=== PATIENT | male | born 1990 | race Caucasian/White ===

== ENCOUNTER 2016-10-29 08:17 | Emergency (ER) | payer BC, OTHER ==
[~2016-10-29] VITALS: Ht 170.2 cm; Wt 90.7 kg
[~2016-10-29 08:17] MED LIST: CYCL10TA9 PO; IBUP800T26 PO; NAPR500T PO; TRAM50TA2 PO
--- OUTSIDE RECORDS SUMMARY | 2016-10-29 08:24 | XMS REPORT | Continuity of Care Document ---
Author Author [facility] Organization [facility] Address Unknown Phone Unavailable Care Team Providers Care Design Printer Balloon Name Role Phone BOB VAZQUEZ DO PCP Insurance Providers Payer Name Policy Number Subscriber Name Relationship [facility] [id number] Claus Lopez 18 Mother Self Pay Approved Full Alexa [id number] Lan Lopez 17 Self / Same As Patient Advance Directives Directive Response Recorded Date/Time Advance Directives No 12/29/14 10:40pm Organ Donor No 12/29/14 10:40pm Resuscitation Status Full Code 12/29/14 10:40pm Problems Medical Problems Problem Onset Date Status Sprain of ankle Unknown Active Back strain Unknown Active Medications Medication Dose Route Sig Days/Qty Instructions Order Date Discontinued Date Status Tramadol Hcl 50 Mg PO EVERY 4HRS PRN PAIN 10 Qty 11/04/13 12/29/14 Discontinued Ibuprofen (Motrin) 800 Mg PO q8h PRN PAIN 20 Qty 11/04/13 12/29/14 Discontinued Cyclobenzaprine HCl (Flexeril) 1 Each PO TWICE A DAY 10 Qty 12/29/14 Active Social History Social History Problem Response Recorded Date/Time Alcohol Use Denies Use 12/29/2014 10:40pm Recreational Drug Use No 12/29/2014 10:40pm Recent Foreign Travel No 12/29/2014 10:40pm Recent Infectious Disease Exposure No 12/29/2014 10:40pm Hospitalization with Isolation Denies 12/29/2014 10:40pm Sexually Transmitted Disease No 12/29/2014 10:40pm Smoking Status Never a Smoker 12/29/2014 10:40pm Do you dip or chew tobacco? No 12/29/2014 10:40pm Query Response Start Date Stop Date Smoking Status Never a Smoker Hospital Discharge Instructions No hospital discharge instructions. Plan of Care No plan of care. Functional Status No functional status results. Allergies, Adverse Reactions, Alerts Allergen Type Severity Reaction Status Last Updated No Known Drug Allergies Active 08/25/09 Immunizations Name Given Type Date of Influenza Vaccine 08/24/14 Historical Tetanus Booster (TDap) Less than 5yrs Historical Vital Signs Acute Vital Signs Vital Response Date/Time Temperature (Fahrenheit) 98.2 degrees F (97.6 - 99.5) Temperature (Calculated Celsius) 36.23735 degrees C (36.4 - 37.5) Temperature Source Temporal Pulse Rate (adult) 80 bpm (60 - 90) Respiratory Rate 16 bpm (12 - 24) O2 Sat by Pulse Oximetry 96 % (88 - 100) Blood Pressure 175/106 mm Hg Pain Pain Intensity 8 Height (Feet) 5 feet Height (Inches) 6 inches Height (Calculated Centimeters) 167.235380 cm Weight (Pounds) 235 pounds Weight (Calculated Kilograms) 106.934084 kilograms Calculated BMI 37.93 Results No known relevant diagnostic tests, laboratory data and/or discharge summary. Procedures No known history of procedures. Encounters Encounter Location Date/Time Departed Emergency Room [facility] 12/29/14 9:51pm Recent Diagnosis
--- NOTE | 2016-10-29 08:40 | ED Upper Extremity ---
General Chief Complaint: Upper Extremity Stated Complaint: RIGHT ARM PAIN Nursing Triage Note: c/o right elbow pain x 3 months. Pt works at [employer] and reports repetative work motion. Nursing Sepsis Screen: No Definite Risk Source: patient Exam Limitations: no limitations History of Present Illness Time seen by provider: 08:36 Initial Comments This 26-year-old white male presents with complaint of persistent right elbow pain for the last 3 months. Patient denies any discrete injury of a recent or remote nature. The pain as sharp in nature, moderate in severity, and made worse with motion. Both pronation-supination as well as flexion-extension causes pain. The patient believes there may be some slight soft tissue swelling to the proximal forearm. The patient denies fever or chill, definite erythema to the elbow, or other joint pain. Patient works at [employer] and states that lifting heavy objects makes the pain worse. Allergies and Home Medications Allergies Coded Allergies: No Known Drug Allergies (Unverified , 08/25/09) Constitutional: No chills, No fever Respiratory: No cough Cardiovascular: No chest pain Gastrointestinal: No abdominal pain, No dysphagia, No nausea, No vomiting Genitourinary: No dysuria, No frequency Musculoskeletal: see HPINo back pain, joint pain Skin: No change in color, No rash Psychiatric/Neurological: No Symptoms Reported Past Qzfzgbh-Yakhnp-Tisgmh Hx Patient Social History Alcohol Use: Denies Use Recreational Drug Use: No Smoking Status: Current Someday Smoker Recent Foreign Travel: No Contact w/Someone Who Travel: No Recent Infectious Disease Expo: No Recent Hopitalizations: No Physical Abuse Screen: No Sexual Abuse: No Immunizations Up To Date Tetanus Booster (TDap): Less than 5yrs Date of Influenza Vaccine: Aug 24, 2014 Seasonal Allergies Seasonal Allergies: No Surgeries HX Surgeries: No Respiratory Hx Respiratory Disorders: No Cardiovascular Hx Cardiac Disorders: No Neurological Hx Neurological Disorders: No Reproductive System Hx Reproductive Disorders: No Sexually Transmitted Disease: No Genitourinary Hx Genitourinary Disorders: No Gastrointestinal Hx Gastrointestinal Disorders: No Musculoskeletal Hx Musculoskeletal Disorders: Yes (previous lower back fx.) Endocrine Hx Endocrine Disorders: No HEENT HX ENT Disorders: No Cancer Hx Cancer: No Psychosocial Hx Psychiatric Problems: No Integumentary HX Skin/Integumentary Disorder: No Blood Transfusions Hx Blood Disorders: No Reviewed Nursing Assessment Reviewed/Agree w Nursing PMH: Yes Family Medical History Significant Family History: No Pertinent Family Hx Physical Exam Vital Signs Vital Sign - Last 12Hours 10/29/16 08:25 Temp 98.4 Pulse 70 Resp 16 Pulse Ox 98 Capillary Refill : Less Than 3 Seconds General Appearance: WD/WN no apparent distress HEENT: normal ENT inspection Neck: normal inspection Cardiovascular: regular rate, rhythm Respiratory: lungs clear Gastrointestinal: non tender soft Back: normal inspection Shoulder: normal inspection Elbow/Forearm: normal inspection, non-tender, no evidence of injury, normal ROM , Right (there is apparent pain with flexion and extension and pronation supination of the right elbow.) Wrist: Yes normal inspection Neurologic/Tendon: normal sensation normal motor functions normal tendon functions Neurologic/Psychiatric: no motor/sensory deficits alert Progress/Results/Core Measures Results/Orders Lab Results Laboratory Tests Test 10/29/16 09:08 Range/Units Basophils # (Auto) 0.0 0.0-0.1 10^3/uL Basophils (%) (Auto) 0 0-10 % Eosinophils # (Auto) 0.1 0.0-0.3 10^3/uL Eosinophils (%) (Auto) 1 0-10 % Erythrocyte Sedimentation Rate 1 0-15 MM/HR Hematocrit 49 40-54 % Hemoglobin 16.9 13.3-17.7 G/DL Lymphocytes # (Auto) 1.8 1.0-4.0 X 10^3 Lymphocytes (%) (Auto) 26 12-44 % Mean Corpuscular Hemoglobin 31 25-34 PG Mean Corpuscular Hemoglobin Concent 34 32-36 G/DL Mean Corpuscular Volume 91 80-99 FL Mean Platelet Volume 10.4 7.4-10.4 FL Monocytes # (Auto) 0.8 0.0-1.0 X 10^3 Monocytes (%) (Auto) 11 0-12 % Neutrophils # (Auto) 4.4 1.8-7.8 X 10^3 Neutrophils (%) (Auto) 62 42-75 % Platelet Count 239 130-400 10^3/uL Red Blood Count 5.40 4.35-5.85 10^6/uL Red Cell Distribution Width 13.4 10.0-14.5 % Uric Acid 6.6 2.6-7.2 MG/DL White Blood Count 7.0 4.3-11.0 10^3/uL My Orders Orders-SONY WOOTEN MD Elbow, Right, 3 Views (10/29/16 08:34) Erythrocyte Sedimentation Rate (10/29/16 08:34) Uric Acid (10/29/16 08:34) Cbc With Automated Diff (10/29/16 08:34) Vital Signs/I&O Vital Sign - Last 12Hours 10/29/16 08:25 Temp 98.4 Pulse 70 Resp 16 B/P Pulse Ox 98 Progress Note : Time: 10:00 Progress Note The x-ray of the right elbow was unremarkable. The sedimentation rate was normal at 1. Status CBC was unremarkable. The uric acid was normal. Departure Impression Impression: Primary Impression: Pain in right elbow Disposition: 01 HOME, SELF-CARE Condition: Unchanged Departure-Patient Inst. Decision time for Depature: 10:02 Referrals: BOB VAZQUEZ DO (PCP/Family) Primary Care Physician Patient Instructions: Joint Pain Add. Discharge Instructions: Follow-up with your primary care physician or work comp. Sling for comfort. Ibuprofen for pain. Return if any problems. All discharge instructions reviewed with patient and/or family. Voiced understanding. SONY WOOTEN MD Oct 29, 2016 08:40
--- NOTE | 2016-10-29 09:27 | Diagnostic Imaging Report ---
3 views of the right elbow. INDICATION: Pain. FINDINGS: There is no fracture, dislocation or radiopaque foreign body. No evidence of an elbow effusion. IMPRESSION: Unremarkable exam. Dictated by: Dictated on workstation # [id number]
[2016-10-29 09:31] LABS: BASOPHILS % (AUTO) 0 % (0-10); EOSINOPHILS # (AUTO) 0.1 10^3/uL (0.0-0.3); EOSINOPHILS % (AUTO) 1 % (0-10); LYMPHOCYTES # (AUTO) 1.8 X 10^3 (1.0-4.0); LYMPHOCYTES % (AUTO) 26 % (12-44); MEAN CORPUSCULAR HEMOGLOBIN 31 PG (25-34); MEAN CORPUSCULAR HGB CONC 34 G/DL (32-36); MEAN CORPUSCULAR VOLUME 91 FL (80-99); MEAN PLATELET VOLUME 10.4 FL (7.4-10.4); MONOCYTES # (AUTO) 0.8 X 10^3 (0.0-1.0); MONOCYTES % (AUTO) 11 % (0-12); NEUTROPHILS # (AUTO) 4.4 X 10^3 (1.8-7.8); NEUTROPHILS % (AUTO) 62 % (42-75); PLATELET COUNT 239 10^3/uL (130-400); RED CELL DISTRIBUTION WIDTH 13.4 % (10.0-14.5)
[2016-10-29 09:50] LABS: ERYTHROCYTE SEDIMENTATION RATE 1 MM/HR (0-15)
[2016-10-29 10:10] VITALS: BP 172/90
== END 2016-10-29 10:10 | disposition home or self-care (01) ==
LOC: EDUNIT# 08:17 → ER 08:20
DX: M79.631 Pain in right forearm (principal); F17.210 Nicotine dependence, cigarettes, uncomplicated
CPT/HCPCS: 36415; 73080; 84550; 85025; 85652

== ENCOUNTER 2017-07-10 03:41 | Emergency (ER) | payer BC, OTHER ==
[~2017-07-10] VITALS: Ht 167.6 cm; Wt 108.9 kg
[2017-07-10] MEDS ORDERED: TETANUS,DIPTH,PERTUSS P/F (BOOSTRIX) 0.5 ML VIAL IM ONE (04:15)
[2017-07-10] MEDS ORDERED: LIDOCAINE 1% INJ 20 ML (XYLOCAINE) VIAL INJ ONE (04:15)
--- NOTE | 2017-07-10 04:18 | ED Integumentary General ---
General Chief Complaint: Skin/Wound Problems Stated Complaint: SPIDER BITE Source: patient Exam Limitations: no limitations History of Present Illness Time seen by provider: 04:10 Initial Comments 26-year-old male presents to ER by private conveyance with a chief complaint of left shoulder pain from a insect bite or abscess over his left shoulder that he just noticed this evening when coming home from work. No limitation of range of motion, no nausea fever or malaise. No history of hidradenitis separative a. Has not ever had abscesses before. He has put some kind of an insect balm on it to no relief. He does not have diabetes however he does smoke one or 2 cigarettes a day. Denies alcohol or recreational drug use. He has no other significant medical history and does not take any medicines. Allergies and Home Medications Allergies Coded Allergies: No Known Drug Allergies (Unverified , 08/25/09) Constitutional: chills, No diaphoresis, No fever, No malaise Respiratory: No cough, No short of breath Cardiovascular: No chest pain, No palpitations Gastrointestinal: No abdominal pain, No constipation, No nausea Genitourinary: No discharge, No dysuria Musculoskeletal: No back pain, No joint pain Skin: see HPI, No pruritus, No rash Psychiatric/Neurological: Denies Headache, Denies Numbness, Denies Paresthesia Past Hlfcugs-Yqodqz-Uyfwnp Hx Patient Social History Recent Foreign Travel: No Contact w/Someone Who Travel: No Recent Hopitalizations: No Immunizations Up To Date Tetanus Booster (TDap): Less than 5yrs Date of Influenza Vaccine: Aug 24, 2014 Seasonal Allergies Seasonal Allergies: No Reproductive System Hx Reproductive Disorders: No Sexually Transmitted Disease: No Family Medical History Significant Family History: No Pertinent Family Hx Physical Exam Vital Signs Capillary Refill : General Appearance: WD/WN, no apparent distress HEENT: PERRL/EOMI, pharynx normal Neck: non-tender, normal inspection Cardiovascular: normal peripheral pulses, regular rate, rhythm Respiratory: no respiratory distress, no accessory muscle use Back: normal inspection, no vertebral tenderness Extremities: normal inspection, normal capillary refill Neurologic/Psychiatric: alert, oriented x 3 Skin: other (1.5 x 1 cm erythematous with white head papule on the left shoulder blade that is mildly tender to palpation and mild area of induration approximately 27 m diameter.) I&D : Site: left posterior shoulder above the scapula Blade Size: 11 I & D Procedure: betadine prep (alcohol) Progress Wound was soaked in alcohol pads and scrubbed thoroughly then saturated with Betadine swabs 3. He was then infiltrated with 1 cc of lidocaine and a ring fashion around the pore. 11 blade scalpel was then used to make a cross evangelista incision and a scant amount of purulence was expressed easily. The wound was then dressed with gauze and tape. Patient tolerated the procedure well. Progress/Results/Core Measures Results/Orders My Orders Orders - NENA MUHAMMAD Lidocaine 1% Injection (Xylocaine 1% Inj (07/10/17 04:15) Dipht,Pertuss(Acell),Tet Adult (Boostrix (07/10/17 04:15) Departure Impression Impression: Primary Impression: Abscess Disposition: 01 HOME, SELF-CARE Condition: Stable Departure-Patient Inst. Decision time for Depature: 04:27 Referrals: BOB VAZQUEZ DO (PCP/Family) Primary Care Physician Patient Instructions: Abscess Incision and Drainage (DC) Add. Discharge Instructions: Drink plenty of fluids and take Tylenol 1000 mg every 8 hours or ibuprofen 800 mg every 8 hours as needed to control the pain. You will get about 45 minutes to an hour's worth of numbness out of the medicine that we put in your shoulder. After which time he may have some dull ache. You've been given a tetanus shot and will be Covered for the next 5-10 years. You've also been given antibiotics and sent to the pharmacy to be picked up and taken with food twice a day for the next 5 days to prevent recurrence of infection. If you have new or worsening symptoms he may return to your primary care physician for follow-up evaluation. You may also use a warm compress applied directly over the wound to help open up the blood vessels in bring more healing blood in to the area so that the wound heals sooner. It is okay to shower and clean the wound with regular soap and water only. All discharge instructions reviewed with patient and/or family. Voiced understanding. Scripts Sulfamethoxazole/Trimethoprim (Bactrim Ds Tablet) 1 Each Tablet 1 EACH PO BID for 5 Days, #10 TAB 0 Refills Prov: NENA MUHAMMAD 07/10/17 Copy Copies To 1: BOB VAZQUEZ TITUS J Jul 10, 2017 04:18
[2017-07-10] MEDS ORDERED: SULF1TAB35 PO (04:29)
[2017-07-10 04:32] VITALS: BP 172/101
== END 2017-07-10 04:30 | disposition home or self-care (01) ==
LOC: EDUNIT# 03:41 → ER 03:45
DX: L02.414 Cutaneous abscess of left upper limb (principal)
CPT/HCPCS: 90471; 90715

== ENCOUNTER 2018-05-26 02:59 | Emergency (ER) | payer OTHER ==
[~2018-05-26] VITALS: Ht 170.2 cm; Wt 96.2 kg
[~2018-05-26 02:59] MED LIST changes: +NAPR-1071 PO; -NAPR500T PO; +SULF1TAB35 PO
[2018-05-26] MEDS ORDERED: CIPR-225 PO (03:14)
[2018-05-26] MEDS ORDERED: CYCLOBENZAPRINE 10 MG (FLEXERIL) TAB PO STA (03:15)
[2018-05-26] MEDS ORDERED: HYDROcodone/APAP 7.5 MG/325 MG (LORTAB, LORCET PLUS) TABLET PO STA (03:15)
[2018-05-26] MEDS ORDERED: predniSONE 20 MG TAB PO ONE (03:15)
--- NOTE | 2018-05-26 03:21 | ED Back Pain ---
General Chief Complaint: Back Problems Stated Complaint: BACK PAIN, LEG PAIN ON BOTH LEGS Source of Information: Patient Exam Limitations: No Limitations History of Present Illness Date Seen by Provider: May 26, 2018 Time Seen by Provider: 03:08 Initial Comments Here with report of low back pain and pain radiating to both legs. Denies any specific injury but states it may be from lifting trash out of a barrel at work. Does have history of back pain. Tried some ibuprofen and that has not helped. Is using topical medicine as well he states that is not helping much either. Timing/Duration: 3-4 Days Severity: Moderate Pain/Injury Location: Back Radiation: Buttocks, Upper Legs Method of Injury: Unknown Modifying Factors: Improves With Immobilization; Worse With Movement Associated Symptoms: muscle spasms; No weakness, No numbness in legs/feet, No tingling in legs/feet, No sensory/motor loss; lower back pain; No loss of bladder control, No loss of bowel control Allergies and Home Medications Allergies Coded Allergies: No Known Drug Allergies (Unverified , 08/25/09) Home Medications Ciprofloxacin HCl 500 Mg Tablet, 500 MG PO BID, (Reported) Patient Home Medication List Home Medication List Reviewed: Yes Constitutional: see HPI; No chills, No fever Respiratory: no symptoms reported Cardiovascular: no symptoms reported Gastrointestinal: No abdominal pain, No nausea, No vomiting Genitourinary: no symptoms reported Musculoskeletal: see HPI, back pain, muscle stiffness; No muscle weakness, No neck pain Skin: no symptoms reported Psychiatric/Neurological: No Symptoms Reported Past Cegmdew-Bhmdjv-Biagfb Hx Past Med/Social Hx: Reviewed Nursing Past Med/Soc Hx Patient Social History Alcohol Use: Denies Use Recreational Drug Use: No Type Used: Cigarettes 2nd Hand Smoke Exposure: Yes Recent Foreign Travel: No Contact w/Someone Who Travel: No Recent Hopitalizations: No Immunizations Up To Date Tetanus Booster (TDap): Less than 5yrs PED Vaccines UTD: Yes Date of Influenza Vaccine: Aug 24, 2014 Seasonal Allergies Seasonal Allergies: No Past Medical History Surgeries: No Respiratory: No Cardiac: No Neurological: No Reproductive Disorders: No Sexually Transmitted Disease: No Genitourinary: No Gastrointestinal: No Musculoskeletal: Yes (previous lower back fx.) Chronic Back Pain Endocrine: No HEENT: No Cancer: No Psychosocial: No Integumentary: No Blood Disorders: No Family Medical History Reviewed Nursing Family Hx No Pertinent Family Hx Physical Exam Vital Signs Vital Signs - First Documented 05/26/18 03:05 Temp 98.4 Pulse 76 Resp 20 B/P (MAP) 146/98 (114) Pulse Ox 98 O2 Delivery Room Air Capillary Refill : Height, Weight, BMI Height: 5'6.00" Weight: 240lbs. oz. 108.758286fe; 37.93 BMI Method:Stated General Appearance: WD/WN, Mild Distress Cardiovascular: Regular Rate, Rhythm, No Murmur Respiratory: Lungs Clear, Normal Breath Sounds Gastrointestinal: Non Tender, Soft Back: No CVA Tenderness (L), No CVA Tenderness (R); Decreased Range of Motion, Muscle Spasm; No Vertebral Tenderness Extremity: Normal Range of Motion, Non Tender; No No Pedal Edema Neurologic/Psychiatric: Alert, Oriented x3 Skin: Normal Color, Warm/Dry Progress/Results/Core Measures Results/Orders My Orders Orders - CUCO LOPEZ MD Cyclobenzaprine Tablet (Flexeril Tablet) (05/26/18 03:15) Hydrocodone/Apap 7.5/325 Tab (Lortab 7. (05/26/18 03:15) Prednisone Tablet (Deltasone Tablet) (05/26/18 03:15) Vital Signs/I&O 05/26/18 03:05 Temp 98.4 Pulse 76 Resp 20 B/P (MAP) 146/98 (114) Pulse Ox 98 O2 Delivery Room Air Progress Progress Note : Progress Note Seen and evaluated. We will give hydrocodone 7.5/325 one tab by mouth, cyclobenzaprine 10 mg by mouth and prednisone 40 mg by mouth. Discharged home with return precautions. Patient verbalize understanding instructions and agreement with plan. Departure Impression Primary Impression: Back pain Qualified Codes: M54.42 - Lumbago with sciatica, left side; M54.41 - Lumbago with sciatica, right side Disposition: 01 HOME, SELF-CARE Condition: Stable Departure-Patient Inst. Decision time for Depature: 03:21 Referrals: BOB VAZQUEZ DO (PCP/Family) Primary Care Physician Patient Instructions: Radiculopathy (DC), Low Back Pain (DC) Add. Discharge Instructions: All discharge instructions reviewed with patient and/or family. Voiced understanding. You may take ibuprofen 800 mg every 8 hours as needed for pain. Take other medication as prescribed. If you're not taking the prescribed hydrocodone pain medicine, you may take Tylenol/acetaminophen 1000 mg every 8 hours as needed for pain. Do not take both as a both have acetaminophen in them. Follow up with your Dr. in a few days for recheck. Return for worse pain, fever, vomiting , weakness, breathing problems or other concerns as needed. Scripts Prednisone (Prednisone) 20 Mg Tab 40 MG PO DAILY, #12 TAB 0 Refills Prov: CUCO LOPEZ MD 05/26/18 Hydrocodone Bit/Acetaminophen (Hydrocodone/Acetaminophen 5/325mg Tablet) 1 Tab Tab 1 EACH PO Q6H PRN for PAIN-MODERATE, #8 TAB 0 Refills Prov: CUCO LOPEZ MD 05/26/18 Cyclobenzaprine HCl (Cyclobenzaprine HCl) 10 Mg Tablet 10 MG PO Q8H PRN for SPASMS, #15 TAB 0 Refills Prov: CUCO LOPEZ MD 05/26/18 Work/School Note: Work Release Form Date Seen in the Emergency Department: May 26, 2018 Return to Work: May 28, 2018 Restrictions: No Restrictions CUCO LOPEZ MD May 26, 2018 03:20
[2018-05-26] MEDS ORDERED: PRD20T PO (03:24)
[2018-05-26] MEDS ORDERED: ACHD5005 PO (03:24)
[2018-05-26] MEDS ORDERED: CYCL10TA9 PO (03:24)
[2018-05-26 03:31] VITALS: BP 146/98
== END 2018-05-26 03:31 | disposition home or self-care (01) ==
LOC: EDUNIT# 02:59 → ER 03:02
DX: M54.5 Low back pain (principal); Z77.22 Contact with and (suspected) exposure to environmental tobacco smoke (acute) (chronic)
CPT/HCPCS: 99283